=== PATIENT | female | born 1975 | race Caucasian/White ===

== ENCOUNTER 2021-12-09 08:57 | Emergency (ER) | payer BC ==
[2021-12-09 09:33] VITALS: RESP 16; TEMP 98.1; BMI 33.3
[2021-12-09] MEDS ORDERED: METOCLOPRAMIDE HCL INJECTION 10 MG/2 ML VIAL IVPB ONE (11:12)
[2021-12-09] MEDS ORDERED: ACETAMINOPHEN 1000 MG/100 ML BAG IVPB ONE (11:12)
[2021-12-09] MEDS ORDERED: SODIUM CHLORIDE 1,000 ML IV STA (11:12)
[2021-12-09] MEDS ORDERED: METOCLOPRAMIDE HCL INJECTION 10 MG/2 ML VIAL ONE (11:19)
[2021-12-09 12:03] LABS: BASO % 0.5 % (0-2.0); EOS % 0.7 % (0-4.5); HEMATOCRIT 41.2 % (32.4-45.2); HEMOGLOBIN 13.7 GM/dL (10.7-15.3); LYMPH % 16.3 % (8-40); MCH 30.1 pg (25.7-33.7); MCHC 33.3 g/dl (32.0-36.0); MEAN CELL VOLUME 90.4 fl (80-96); MEAN PLT VOLUME 8.4 fl (7.5-11.1); MONO % 5.1 % (3.8-10.2); NEUT % 77.4 % (42.8-82.8); PLATELET COUNT 210 10^3/uL (134-434); RBC 4.56 M/mm3 (3.60-5.2); RDW 15.1 % (11.6-15.6); WHITE BLOOD COUNT 6.4 K/mm3 (4.0-10.0)
[2021-12-09 12:40] LABS: BLOOD UREA NITROGEN 11.9 mg/dL (7-18)
[2021-12-09 12:43] LABS: CREATININE 0.9 mg/dL (0.55-1.3)
[2021-12-09 12:44] LABS: BILIRUBIN,TOTAL 0.5 mg/dL (0.2-1); TOT PROT 7.3 g/dl (6.4-8.2)
[2021-12-09] MEDS ORDERED: ONDANSETRON 4 MG/2 ML VIAL IVPUSH ONE (13:55)
[2021-12-09] MEDS ORDERED: ONDANSETRON 4 MG/2 ML VIAL ONE (14:06)
[2021-12-09 15:08] VITALS: BP 120/66; PULSE 80
[2021-12-09 15:31] LABS: EPI CELLS 6 /uL (0-25.1); HYALINE CASTS 16 /uL (0-3.1); PH,URINE 5.5 (5.0-8.0); URINE APPEARANCE TURBID; URINE BACTERIA 2344 /uL (0-1359); URINE BILIRUBIN NEGATIVE (NEGATIVE); URINE COLOR ORANGE; URINE GLUCOSE (UA) NEGATIVE (NEGATIVE); URINE KETONE 3+ (NEGATIVE); URINE LEUK ESTERASE 2+ (NEGATIVE); URINE NITRITE NEGATIVE (NEGATIVE); URINE PROTEIN 1+ (NEGATIVE); URINE RBC 14528 /uL (0-23.9); URINE WBC 638 /uL (0-25.8)
== END 2021-12-09 15:05 | disposition home or self-care (01) ==
LOC: JER 08:57
PROC: 3E033NZ Introduction of Analgesics, Hypnotics, Sedatives into Peripheral Vein, Percutaneous Approach (ICD-10-PCS; principal; 2021-12-09)
PROC: 3E033GC Introduction of Other Therapeutic Substance into Peripheral Vein, Percutaneous Approach (ICD-10-PCS; 2021-12-09)
PROC: 3E033GC Introduction of Other Therapeutic Substance into Peripheral Vein, Percutaneous Approach (ICD-10-PCS; 2021-12-09)
PROC: 3E0337Z Introduction of Electrolytic and Water Balance Substance into Peripheral Vein, Percutaneous Approach (ICD-10-PCS; 2021-12-09)
DX: K52.9 Noninfective gastroenteritis and colitis, unspecified (principal); R11.2 Nausea with vomiting, unspecified
CPT/HCPCS: 36415; 80053; 81003; 83690; 84703; 85025; 87086; 87186; 99284-25; C9803-CS; U0003; U0005

== ENCOUNTER 2022-12-27 22:26 | Emergency (ER) | payer BC ==
[2022-12-27 22:33] VITALS: BP 131/83; PULSE 76; RESP 18; TEMP 97.7; BMI 42.0
== END 2022-12-27 23:16 | disposition home or self-care (01) ==
LOC: JER 22:26
DX: L02.223 Furuncle of chest wall (principal)
CPT/HCPCS: 99283-25